=== PATIENT | male | born 1995 | race Caucasian/White ===

== ENCOUNTER 2019-05-19 16:24 | Emergency (ER) | payer MEDICAID ==
[~2019-05-19] VITALS: Ht 167.6 cm; Wt 59.0 kg
[2019-05-19] MEDS ORDERED: IBUPROFEN 800MG TABLET PO ONE (19:45)
[2019-05-19] MEDS ORDERED: ACETAMINOPHEN 500MG TABLET PO ONE (19:45)
[2019-05-19] MEDS ORDERED: HYDROCODONE/ACETAMINOPHEN 5/325MG TABLET PO ONE (20:15)
[2019-05-19] MEDS: BUPIVACAINE HCL/PF 0.25% (2.5MG/ML) 10ML INFIL NR ×2 (20:46→21:00)
[2019-05-19 22:47] VITALS: BP 110/70
== END 2019-05-19 22:48 | disposition home or self-care (01) ==
LOC: ER 17:32
DX: S62.344A Nondisplaced fracture of base of fourth metacarpal bone, right hand, initial encounter for closed fracture (principal); S62.346A Nondisplaced fracture of base of fifth metacarpal bone, right hand, initial encounter for closed fracture; W01.0XXA Fall on same level from slipping, tripping and stumbling without subsequent striking against object, initial encounter; Y93.41 Activity, dancing; Y92.89 Other specified places as the place of occurrence of the external cause
CPT/HCPCS: 26700; 73120; 73130; 99284; J3490